=== PATIENT | male | born 1935 | race Caucasian/White ===

== ENCOUNTER → 2017-11-29 11:31 | Outpatient (CLI) | payer MEDICARE, OTHER, SELFPAY ==
[2017-11-29 18:59] LABS: Basophils # 0.1 K/mm3 (0-0.2); Basophils % 0.7 % (0.1-2.0); Eosinophils # 2.2 K/mm3 (0.0-0.4); Eosinophils % 26.1 % (0.1-12.0); Hematocrit 44.5 % (42.0-52.0); Hemoglobin 13.9 g/dL (14.1-18.0); Lymphocytes % 23.7 K/mm3 (10-50); Mean Corpuscular HGB Conc 31.1 g/dL (31.8-35.4); Mean Corpuscular Hemoglobin 32.9 pg (27.0-31.2); Mean Corpuscular Volume 105.7 fl (80-94); Mean Platelet Volume 9.3 fl (7.4-10.4); Monocytes # 0.6 K/mm3 (0.1-1.0); Monocytes % 7.1 % (1.7-9.3); Neutrophils # 3.5 K/mm3 (1.8-7.8); Neutrophils % 42.4 % (37.0-80.0); Platelet Count 223 K/mm3 (142-424); Red Blood Count 4.21 M/mm3 (4.60-6.20); Red Cell Distribution Width 16.8 % (11.5-17.5); White Blood Count 8.3 K/mm3 (4.8-10.8)
[2017-11-29 21:40] LABS: Alanine Aminotransferase 23 U/L (12-78); Albumin Level 3.5 gm/dL (3.4-5.0); Albumin/Globulin Ratio 0.9 (1.1-1.8); Alkaline Phosphatase 166 U/L (46-116); Anion Gap 15.6 mEq/L (5-15); Aspartate Amino Transferase 19 U/L (15-37); Bilirubin,Total 0.3 mg/dL (0.2-1.0); Blood Urea Nitrogen 28 mg/dL (7-18); Calcium 8.8 mg/dL (8.5-10.1); Carbon Dioxide 27 mmol/L (21.0-32.0); Chloride 102 mmol/L (98-107); Chol/HDL Ratio 4.2 (1-3.5); Cholesterol 140 mg/dL (140-200); Creatinine,Serum 1.65 mg/dL (0.70-1.30); Estimated Glomerular Filt Rate 40 ml/min (>60); GFR (African American) 49 ML/MIN (>60); Globulin 4.1 gm/dl (1.3-3.2); Glucose 139 mg/dL (74-106); HDL Cholesterol 33 mg/dL (27-67); LDL Cholesterol 28 mg/dL (0-130); Potassium 3.6 mmoL/L (3.5-5.1); Sodium 141 mmol/L (136-145); T4 (Thyroxine) 6.6 ug/dl (4.7-13.3); Thyroid Stimulating Hormone 8.86 uIU/ml (0.358-3.740); Total Protein,Serum 7.6 gm/dL (6.4-8.2); Triglycerides 393 mg/dL (30-200); VLDL Cholesterol 79 mg/dL (0-40)
[2017-12-01 19:02] LABS: Vitamin D 25 Hydroxy 22.2 ng/mL (30.0-100.0)
== END ==
PROVIDERS: Visit Provider Nurse Practitioner Family
DX: I10 Essential (primary) hypertension (principal); R53.83 Other fatigue; E03.9 Hypothyroidism, unspecified
CPT/HCPCS: 80053; 80061; 82652; 84436; 84443; 85025

== ENCOUNTER → 2017-12-20 14:43 | Outpatient (CLI) | payer MEDICARE, OTHER, SELFPAY ==
--- NOTE | 2017-12-20 14:46 | XR_ITS ---
XR chest 2V HISTORY: Cough, history of smoking ITS.REASON: smoker ORDERING PHYSICIAN: Lola Neri PATIENT AGE: 82 years COMPARISON: 08/09/2014 FINDINGS: The heart size is unremarkable. There is tortuosity/ectasia of the thoracic aorta. Hiatal hernia is present. The lungs are clear bilaterally. No acute bony anomalies are evident. There is a an oval calcific density in the right upper quadrant measuring 4.8 x 3.6 cm with faint shell-like calcification. 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 There is a 9 mm calcific density in the left upper quadrant. IMPRESSION: 1. Small to medium sized hiatal hernia 2. 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 3. Left upper quadrant calcification nonspecific and may be in the spleen or in the kidney. Consider abdomen CT for more thorough evaluation of the upper abdominal calcifications.
== END ==
PROVIDERS: PCP Nurse Practitioner Family; Visit Provider Nurse Practitioner Family
DX: R74.8 Abnormal levels of other serum enzymes (principal)
CPT/HCPCS: 71046

== ENCOUNTER → 2018-05-30 19:01 | Outpatient (CLI) | payer MEDICARE, OTHER, SELFPAY ==
[2018-05-30 19:31] LABS: Basophils # 0.1 K/mm3 (0-0.2); Hematocrit 45.6 % (42.0-52.0); Hemoglobin 14.5 g/dL (14.1-18.0); Lymphocytes # 1.6 K/mm3 (0.7-4.5); Mean Corpuscular HGB Conc 31.7 g/dL (31.8-35.4); Mean Corpuscular Hemoglobin 33.9 pg (27.0-31.2); Mean Platelet Volume 9.1 fl (7.4-10.4); Monocytes # 0.5 K/mm3 (0.1-1.0); Monocytes % 6.5 % (1.7-9.3); Neutrophils # 2.9 K/mm3 (1.8-7.8); Neutrophils % 40.5 % (37.0-80.0); Platelet Count 194 K/mm3 (142-424); Red Blood Count 4.26 M/mm3 (4.60-6.20); Red Cell Distribution Width 15.9 % (11.5-17.5)
[2018-05-30 20:49] LABS: Alanine Aminotransferase 21 U/L (12-78); Albumin Level 3.5 gm/dL (3.4-5.0); Albumin/Globulin Ratio 0.8 (1.1-1.8); Alkaline Phosphatase 151 U/L (46-116); Anion Gap 14.8 mEq/L (5-15); Aspartate Amino Transferase 15 U/L (15-37); Bilirubin,Total 0.3 mg/dL (0.2-1.0); Blood Urea Nitrogen 22 mg/dL (7-18); Calcium 9.3 mg/dL (8.5-10.1); Carbon Dioxide 26 mmol/L (21.0-32.0); Chloride 100 mmol/L (98-107); Chol/HDL Ratio 7.5 (1-3.5); Cholesterol 203 mg/dL (140-200); Creatinine,Serum 1.63 mg/dL (0.70-1.30); Estimated Glomerular Filt Rate 41 ml/min (>60); GFR (African American) 50 ML/MIN (>60); Globulin 4.6 gm/dl (1.3-3.2); Glucose 189 mg/dL (74-106); HDL Cholesterol 27 mg/dL (27-67); Potassium 4.8 mmoL/L (3.5-5.1); Sodium 136 mmol/L (136-145); T4 (Thyroxine) 4.9 ug/dl (4.7-13.3); Thyroid Stimulating Hormone 13.86 uIU/ml (0.358-3.740); Total Protein,Serum 8.1 gm/dL (6.4-8.2)
[2018-05-30 21:16] LABS: Triglycerides 621 mg/dL (30-200)
[2018-06-02 10:14] LABS: Vitamin D 25 Hydroxy 15.5 ng/mL (30.0-100.0)
== END ==
PROVIDERS: Visit Provider Nurse Practitioner Family
DX: E55.9 Vitamin D deficiency, unspecified (principal); E78.00 Pure hypercholesterolemia, unspecified; I10 Essential (primary) hypertension; F17.210 Nicotine dependence, cigarettes, uncomplicated
CPT/HCPCS: 80053; 80061; 82652; 84436; 84443; 85025

== ENCOUNTER → 2018-06-13 18:16 | Outpatient (CLI) | payer MEDICARE, OTHER, SELFPAY ==
[2018-06-13 19:56] LABS: Hemoglobin A1C 7.5 % (0.0-7.0)
== END ==
PROVIDERS: Visit Provider Emergency Medicine
DX: R53.83 Other fatigue (principal); Z79.899 Other long term (current) drug therapy
CPT/HCPCS: 83036

== ENCOUNTER → 2019-01-15 16:50 | Outpatient (CLI) | payer MEDICARE, OTHER, SELFPAY | PROVIDERS: Visit Provider Nurse Practitioner Family | DX: M54.9 Dorsalgia, unspecified (principal) | CPT/HCPCS: 87086 ==

== ENCOUNTER 2019-10-04 17:48 | Emergency (ER) | payer MEDICARE, OTHER, SELFPAY ==
[2019-10-04 17:49] VITALS: BP 94/58; PULSE 64; RESP 16; TEMP 36.8; O2SAT 97; BMI 18.0
--- NOTE | 2019-10-04 17:59 | XR_ITS ---
PROCEDURE: XR CHEST AP CLINICAL HISTORY: fall Posttraumatic pain COMPARISON: CXR2 CHEST-AP VIEW ONLY from 04/11/2014 CXR1 CHEST-PORTABLE from 08/09/2014 CXR2V XR chest 2V from 12/20/2017 FINDINGS: Mild cardiomegaly without failure. Lucency noted in the retrocardiac region consistent with hiatal hernia Increased density right lung base probably related some eventration of the diaphragm with some mild atelectatic change. Mild atelectasis left lung base. No acute bony abnormalities. IMPRESSION: Cardiomegaly with bibasilar atelectasis and hiatal hernia Dictated by: Jose Newton MD 10/05/2019 07:12 Electronically signed by Jose Newton MD in [place] 10/05/2019 07:12
--- NOTE | 2019-10-04 17:59 | CT_ITS ---
PROCEDURE: CT HEAD/BRAIN WO CON CLINICAL INDICATION: Fall Head injury with headache/pain, contusion, abrasion or hematoma COMPARISON: [facility] CT HEAD W/O CONTR from 11/30/2015 TECHNIQUE: Axial images obtained. All CT scans at the facility use one or more dose reduction, viz: automated exposure control, ma/kV adjustment per patient size (including targeted exams where dose is matched to indication, i.e. head), or iterative reconstruction technique. FINDINGS: No midline shift, mass effect, intracranial hemorrhage, hydrocephalus, or extra-axial fluid collection is evident. There is generalized atrophy with hypoattenuation of the periventricular white matter consistent with microangiopathic changes.. Encephalomalacia changes are present in the left occipital lobe the. There is prominent soft tissue swelling in the right frontal region of the scalp consistent with hematoma. The calvarium has an unremarkable appearance. There is a small amount fluid in left mastoid sinus. No sinus air-fluid level. IMPRESSION: 1. No acute intracranial findings. 2. Right frontal scalp hematoma Dictated by: Jose Newton MD 10/05/2019 07:37 Electronically signed by Jose Newton MD in [place] 10/05/2019 07:37
--- NOTE | 2019-10-04 17:59 | XR_ITS ---
PROCEDURE: XR PELVIS 1-2V CLINICAL INDICATION: fall Posttraumatic pain COMPARISON: XR HIP RT 2-3V W/PELVIS from 01/08/2019 TECHNIQUE: XR Pelvis AP View FINDINGS: No fracture or dislocation is evident. No significant degenerative change. There is generalized vascular calcification. There is suspected abdominal aortic/iliac artery aneurysm with curvilinear calcification noted of the aorta and proximal left common iliac. CT may confirm. Degenerative changes are present in the lower lumbar spine IMPRESSION: No acute finding. The atherosclerotic calcification with possible aortoiliac aneurysm. CT may confirm Dictated by: Jose Newton MD 10/05/2019 07:10 Electronically signed by Jose Nweton MD in [place] 10/05/2019 07:10
--- NOTE | 2019-10-04 17:59 | CT_ITS ---
PROCEDURE: CT CERVICAL SPINE WO CON CLINICAL INDICATION: Fall Neck injury with pain, contusion/abrasion or hematoma, cervical sprain/strain the COMPARISON: No exams were available for comparison TECHNIQUE: Axial images obtained with sagittal and coronal reformats. All CT scans at the facility use one or more dose reduction, viz: automated exposure control, ma/kV adjustment per patient size (including targeted exams where dose is matched to indication, i.e. head), or iterative reconstruction technique. Axial spiral CT scanning performed of the cervical spine beginning at the base of the skull and continuing to the upper T-spine. 3-D multiplanar reconstruction with 3-D manipulation of volumetric data set in image rendering was completed by the radiologist and/or technologist with the supervision of the radiologist on independent workstation. FINDINGS: There is normal alignment. No fracture or dislocation is evident. Multilevel cervical spondylosis is present including degenerative disc disease C2-C3, degenerative disc disease with endplate osteophytes and bilateral foraminal narrowing at C3-C4, degenerative disc disease C4-C5 with mild bilateral foraminal narrowing, degenerative disc disease C5-C6 with endplate osteophyte eccentric to the right with right lateral recess and foraminal narrowing, degenerative disc disease C6-C7 with mild bilateral foraminal narrowing. Irregular opacities are present in both lung apices possibly due to scarring/fibrotic change. Consider chest CT for further evaluation. This optic is is dilated with mild thickening of the esophageal wall. Diffuse atherosclerotic calcification involves the aorta and great vessels with fusiform dilatation of the carotid arteries. Scattered gas density is present on both sides of the cavernous sinus. IMPRESSION: 1. No acute fracture 2. Multilevel cervical spondylosis as detailed above. 3. Opacities in both lung apices which could be due to scarring. Follow-up suggested as neoplasm is not excluded. 4. Gas density within the cavernous sinus. This may be seen with sphenoid fractures, thromboembolic disease, or air emboli from intravenous access. Consider follow-up head CT to confirm resolution. Dictated by: Jose Newton MD 10/05/2019 07:54 Electronically signed by Jose Newton MD in [place] 10/05/2019 07:54
--- NOTE | 2019-10-04 18:01 | ECG_ITS ---
APPROVED REPORT Exam: Resting ECG HR:69 bpm ECG Measurements Heart Rate 69 AXES IA 130 P 74 QRSd 104 QRS 3 QT 456 T 75 QTc 488 <Conclusion> Normal sinus rhythm T wave abnormality, consider anterolateral ischemia Prolonged QT Abnormal ECG Electronically signed by : Dayo Mills, 10/05/2019 09:04:38
--- NOTE | 2019-10-04 18:44 | HMH.EDWEAK ---
ED Disposition Clinical Impression: Accidental fall, Closed head injury Disposition: Home, Self-Care Condition on Discharge: Good Instructions: DI for Concussion Referrals: Lola Neri APRN [Primary Care Provider] - 3 days Time of Disposition: 19:45 - Critical Care Critical Care Time: No Attestation: On 10/04/19, the high probability of a clinically significant, sudden or life threatening deterioration of the following system(s) required my full and direct attention, intervention and personal management. The time I documented below is in addition to time spent performing reported procedures but includes the following listed in this critical care notation. Medical Decision Making - Medical Records Medical records reviewed: Yes: I reviewed the patient's medical records. - Sarwat Inquiry Pt receiving controlled substance: No Vital Signs: 10/04/19 17:49 Temperature 98.2 F Temperature Source Oral Pulse Rate [Right Brachial] 64 Respiratory Rate 16 Blood Pressure [Right Arm] 94/58 L Blood Pressure Mean [Right Arm] 70 Blood Pressure Source [Right Arm] Automatic Cuff Blood Pressure Position [Right Arm] Sitting 02 Sat by Pulse Oximetry 97 Oxygen Delivery Method Nasal Cannula Oxygen Flow Rate (LPM) 2 - Lab Data Lab Results 10/04/19 19:06: WBC 9.6, RBC 3.34 L, Hgb 11.0 L, Hct 34.8 L, MCV 104.1 H, MCH 32.9 H, MCHC 31.6 L, RDW 16.7, Plt Count 168, MPV 9.2, Neut % (Auto) 73.0, Lymph % (Auto) 14.1, [place] % (Auto) 4.1, Eos % (Auto) 8.4, Baso % (Auto) 0.4, Neut # (Auto) 7.0, Lymph # (Auto) 1.4, Howard # (Auto) 0.4, Eos # (Auto) 0.8 H, Baso # (Auto) 0.0 10/04/19 19:06: Sodium 137, Potassium 4.5, Chloride 104, Carbon Dioxide 28, Anion Gap 9.5, BUN 26 H, Creatinine 1.40 H, Estimated Creat Clear 28, Estimated GFR 49 L, Est GFR ( Amer) 59, Glucose 134 H, Calcium 8.7, Total Bilirubin 0.5, AST 26, ALT 20, Alkaline Phosphatase 134 H, Troponin I 0.01, Total Protein 6.2 L, Albumin 3.3 L, Globulin 2.9, Albumin/Globulin Ratio 1.1 Result diagrams: 10/04/19 19:06 10/04/19 19:06 Orders (Tests/Meds): ORDERS Category Date Time Status CT cervical spine wo con Stat Cat Scan 10/04/19 17:[address] head/brain wo con Stat Cat Scan 10/04/19 17:59 Taken Chest XR AP view [XR chest AP] Stat Exams 10/04/19 17:59 Taken XR pelvis 1-2V Stat Exams 10/04/19 17:59 Taken Troponin I Q3H Lab 10/04/19 21:15 Ordered Troponin I Q3H Lab 10/05/19 00:15 Ordered - Radiology Data #1 X-ray of the chest and pelvis did not show any acute fracture or abnormality - CT Data CT Scan: Head, C-Spine Time Received: 18:49 Findings Narrative: Large right frontal hematoma, no acute intracranial abnormality, no C-spine fracture - ECG Data Tracing #1 EKG was reviewed at 04/03/2002. Normal ventricular rate of 69 bpm, normal PA interval. Sinus rhythm with nonspecific changes, prolonged QT - Reevaluation(s) Time: 19:44 Reevaluation #1: On reevaluation, the patient is feeling much better. Repeat exam is normal. Neuro exam is normal. Patient does not show any fracture on his imaging. He has some mild acute kidney injury. The daughter states that he has been sitting out in the sun in the heat lately because he is always cold. I did instruct them to maintain fluid intake. Given strict return precautions. Verbalized understanding. Medical Decision Narrative: 83-year-old male presented to the emergency department after accidental fall. Patient has large hematoma. CT will be obtained. Hemodynamically stable at this time. Weakness HPI - General Chief complaint: Weakness Stated complaint: fall Time Seen by Provider: 10/04/19 17:51 Mode of Arrival: EMS Limitations: No Limitations Description of Symptoms (Recalled from ER Triage Doc. by RN): PT comes in with large hematoma to the right side of his head. Family reports pt has been falling today and unsure of why. Pt c/o neck pain, and a headache and advises he just [place]
[2019-10-04 19:16] LABS: Basophils % 0.4 % (0.1-2.0); Chloride 104 mmol/L (98-107); Eosinophils # 0.8 K/mm3 (0.0-0.4); Eosinophils % 8.4 % (0.1-12.0); Hematocrit 34.8 % (42.0-52.0); Lymphocytes # 1.4 K/mm3 (0.7-4.5); Lymphocytes % 14.1 % (10-50); Mean Corpuscular HGB Conc 31.6 g/dL (31.8-35.4); Mean Corpuscular Hemoglobin 32.9 pg (27.0-31.2); Mean Corpuscular Volume 104.1 fl (80-94); Mean Platelet Volume 9.2 fl (7.4-10.4); Monocytes # 0.4 K/mm3 (0.1-1.0); Monocytes % 4.1 % (1.7-9.3); Platelet Count 168 K/mm3 (142-424); Red Blood Count 3.34 M/mm3 (4.60-6.20); Red Cell Distribution Width 16.7 % (11.5-17.5); Sodium 137 mmol/L (136-145); White Blood Count 9.6 K/mm3 (4.8-10.8)
[2019-10-04 19:17] LABS: Potassium 4.5 mmoL/L (3.5-5.1)
[2019-10-04 19:19] LABS: Alanine Aminotransferase 20 U/L (12-78); Alkaline Phosphatase 134 U/L (38-126); Aspartate Amino Transferase 26 U/L (17-59); Bilirubin,Total 0.5 mg/dl (0.2-1.3); Blood Urea Nitrogen 26 mg/dl (9-20); Creatinine Clearance Estimated 28 mL/min (50-200); Estimated Glomerular Filt Rate 49 ml/min (>60); GFR (African American) 59 ML/MIN (>60)
[2019-10-04 19:20] LABS: Albumin Level 3.3 g/dl (3.5-5.0); Albumin/Globulin Ratio 1.1 (1.1-1.8); Anion Gap 9.5 mEq/L (5-15); Calcium 8.7 mg/dl (8.4-10.2); Carbon Dioxide 28 mmol/L (22.0-30.0); Globulin 2.9 g/dL (1.3-3.2); Glucose 134 mg/dl (74-100); Total Protein,Serum 6.2 g/dl (6.3-8.2)
[2019-10-04 19:35] LABS: Troponin I 0.01 ng/ml (0.00-0.034)
[2019-10-04 19:57] VITALS: BP 113/72; PULSE 78; RESP 18; O2SAT 94
[2019-10-04 20:07] VITALS: BP 113/72; PULSE 78; RESP 18; TEMP 36.7; O2SAT 94
== END 2019-10-04 20:08 | disposition home or self-care (01) ==
PROVIDERS: Emergency Provider Emergency Medicine; PCP Nurse Practitioner Family
DX: S00.83XA Contusion of other part of head, initial encounter (principal); W01.0XXA Fall on same level from slipping, tripping and stumbling without subsequent striking against object, initial encounter; Y92.019 Unspecified place in single-family (private) house as the place of occurrence of the external cause; J44.9 Chronic obstructive pulmonary disease, unspecified; I10 Essential (primary) hypertension; I25.2 Old myocardial infarction; E78.5 Hyperlipidemia, unspecified; F17.210 Nicotine dependence, cigarettes, uncomplicated; Z79.899 Other long term (current) drug therapy
CPT/HCPCS: 70450; 71045; 72125; 72170; 80053; 84484; 85025; 93005; 99283

== ENCOUNTER 2020-01-14 11:35 | Inpatient (IN) | payer MEDICARE, OTHER, SELFPAY ==
[2020-01-14] VITALS (15 sets, daily range): BP systolic 112–144; BP diastolic 56–93; PULSE 75–106; RESP 17–22; TEMP 36.4–36.6; O2SAT 90–97; BMI 23.9; BMI 22.4; BMI 23.2
--- NOTE | 2020-01-14 11:42 | ECG_ITS ---
APPROVED REPORT Exam: Resting ECG HR:84 bpm ECG Measurements Heart Rate 84 AXES IN 116 P 23 QRSd 100 QRS 0 QT 402 T 159 QTc 475 Conclusion Normal sinus rhythm ST & T wave abnormality, consider lateral ischemia Prolonged QT Abnormal ECG Electronically signed by : Dayo Mills, 01/27/2020 16:38:44
--- NOTE | 2020-01-14 11:43 | XR_ITS ---
PROCEDURE: XR CHEST PORTABLE CLINICAL HISTORY: SOB And chest pain, denies smoking history COMPARISON: Portable upright chest 10/04/2019 and PA and lateral chest 12/20/2017 FINDINGS: This is a poor inspiratory effort. Coarse patchy ill-defined pneumonic infiltrates are seen in both perihilar regions and both lower lobes slightly more prominent right side than left. There is a small right pleural effusion and there may be minimal blunting and/or effusion at the left costophrenic angle. The upper lung vicente are clear. There is stable mild generalized cardiomegaly with aortic tortuosity there is no pulmonary congestion. IMPRESSION: Bilateral perihilar and lower lobe pneumonia with reactive pleural effusions larger right side than left Dictated by: Dr. Clint Valles MD 01/14/2020 12:24 Dr. Clint Valles MD in [place] 01/14/2020 12:24
--- NOTE | 2020-01-14 11:43 | PC.NURSE ---
Family at bedside
--- NOTE | 2020-01-14 11:48 | HMH.EDGENADL ---
ED Disposition Clinical Impression: Acute urinary retention, Elevated troponin Congestive heart failure Qualifiers: Heart failure type: unspecified Heart failure chronicity: acute Qualified Code(s): I50.9 - Heart failure, unspecified Respiratory failure with hypoxia Qualifiers: Chronicity: acute Qualified Code(s): J96.01 - Acute respiratory failure with hypoxia Disposition: Admitted As Inpatient Condition on Discharge: Serious - Critical Care Critical Care Time: Yes Attestation: On , the high probability of a clinically significant, sudden or life threatening deterioration of the following system(s) required my full and direct attention, intervention and personal management. The time I documented below is in addition to time spent performing reported procedures but includes the following listed in this critical care notation. Total Critical Care Time: 30 Vital system(s) involved:: Circulatory Failure, Respiratory Failure My critical care processes included: Assessment & monitoring of V/S, Initial and Re-exams, Data Review/Interpretation, Coordinating Care, Medication Orders and management, Documentation Medical Decision Making - Medical Records Medical records reviewed: Yes: I reviewed the patient's medical records. - Sarwat Inquiry Pt receiving controlled substance: No Vital Signs: 01/14/20 11:38 01/14/20 12:06 01/14/20 12:25 Temperature 97.9 F Temperature Source Oral Pulse Rate [Right Radial] 84 87 Respiratory Rate 20 Blood Pressure [Right Arm] 144/93 H 115/71 Blood Pressure Mean [Right Arm] 110 85 Blood Pressure Source [Right Arm] Automatic Cuff Automatic Cuff Blood Pressure Position [Right Arm] Sitting Sitting 02 Sat by Pulse Oximetry 95 94 L 96 Oxygen Delivery Method Room Air Nasal Cannula Nasal Cannula Oxygen Flow Rate (LPM) 3 2 01/14/20 12:38 01/14/20 13:00 01/14/20 13:26 Temperature 97.7 F Temperature Source Oral Pulse Rate [Right Radial] 76 100 H 83 Respiratory Rate 20 22 21 Blood Pressure [Right Arm] 127/80 118/75 136/83 Blood Pressure Mean [Right Arm] 95 89 100 Blood Pressure Source [Right Arm] Automatic Cuff Automatic Cuff Automatic Cuff Blood Pressure Position [Right Arm] Sitting Sitting Sitting 02 Sat by Pulse Oximetry 96 96 94 L Oxygen Delivery Method Nasal Cannula Nasal Cannula Nasal Cannula Oxygen Flow Rate (LPM) 2 3 3 01/14/20 14:52 01/14/20 15:30 Temperature Temperature Source Pulse Rate [Right Radial] 75 78 Respiratory Rate Blood Pressure [Right Arm] 118/80 Blood Pressure Mean [Right Arm] 92 Blood Pressure Source [Right Arm] Automatic Cuff Blood Pressure Position [Right Arm] Sitting 02 Sat by Pulse Oximetry 96 94 L Oxygen Delivery Method Nasal Cannula Nasal Cannula Oxygen Flow Rate (LPM) 3 3 - Lab Data Lab results reviewed: Yes: I reviewed the patient's lab results. Lab Results 01/14/20 12:12: WBC 8.0, RBC 3.12 L, Hgb 9.6 L, Hct 30.6 L, MCV 98.2 H, MCH 30.8, MCHC 31.4 L, RDW 18.3 H, Plt Count 255, MPV 9.6, Neut % (Auto) 83.1 H, Lymph % (Auto) 9.4 L, [place] % (Auto) 4.1, Eos % (Auto) 3.2, Baso % (Auto) 0.2, Neut # (Auto) 6.6, Lymph # (Auto) 0.7, [place] # (Auto) 0.3, Eos # (Auto) 0.3, Baso # (Auto) 0.0 01/14/20 12:12: Sodium 138, Potassium 4.1, Chloride 101, Carbon Dioxide 24, Anion Gap 17.1 H, BUN 44 H, Creatinine 1.70 H, Estimated Creat Clear 29, Estimated GFR 39 L, Est GFR ( Amer) 47 L, Glucose 177 H, Calcium 8.6, Troponin I 1.37 H 01/14/20 12:12: NT-Pro-B Natriuret Pep 27662 H 01/14/20 12:12: SARS-CoV-2 IgG Ab (Rapid) Negative, SARS-CoV-2 IgM Ab (Rapid) Negative 01/14/20 12:12: Total Bilirubin 0.7, Direct Bilirubin 0.4, Conjugated Bilirubin 0.0, Indirect Bilirubin 0.3, Unconjugated Bilirubin 0.3, AST 43, ALT 30, Alkaline Phosphatase 125, Total Protein 6.8, Albumin 3.8 01/14/20 12:12: Lactate 2.8 H 01/14/20 12:12: TSH < 0.02 L 01/14/20 13:02: Chlamy pneumoniae PCR Not detected, Adenovirus (PCR) Not detected, B. pertussis DNA (PCR) Not detected, Cor
--- NOTE | 2020-01-14 12:11 | PC.NURSE ---
rad at BS
[2020-01-14 12:24] LABS: Basophils % 0.2 % (0.1-2.0); Eosinophils # 0.3 K/mm3 (0.0-0.4); Eosinophils % 3.2 % (0.1-12.0); Hematocrit 30.6 % (42.0-52.0); Hemoglobin 9.6 g/dL (14.1-18.0); Lymphocytes # 0.7 K/mm3 (0.7-4.5); Lymphocytes % 9.4 % (10-50); Mean Corpuscular HGB Conc 31.4 g/dL (31.8-35.4); Mean Corpuscular Hemoglobin 30.8 pg (27.0-31.2); Mean Corpuscular Volume 98.2 fl (80-94); Mean Platelet Volume 9.6 fl (7.4-10.4); Monocytes # 0.3 K/mm3 (0.1-1.0); Monocytes % 4.1 % (1.7-9.3); Neutrophils # 6.6 K/mm3 (1.8-7.8); Neutrophils % 83.1 % (37.0-80.0); Platelet Count 255 K/mm3 (142-424); Red Blood Count 3.12 M/mm3 (4.60-6.20); Red Cell Distribution Width 18.3 % (11.5-17.5)
[2020-01-14 12:29] LABS: Chloride 101 mmol/L (98-107); Potassium 4.1 mmoL/L (3.5-5.1); Sodium 138 mmol/L (136-145)
[2020-01-14 12:32] LABS: Alanine Aminotransferase 30 U/L (12-78); Alkaline Phosphatase 125 U/L (38-126); Anion Gap 17.1 mEq/L (5-15); Aspartate Amino Transferase 43 U/L (17-59); Bilirubin,Direct 0.4 mg/dl (0.0-0.4); Bilirubin,Indirect 0.3 mg/dL (0.0-0.9); Bilirubin,Total 0.7 mg/dl (0.2-1.3); Bilirubin,Unconjugated 0.3 mg/dL (0.0-1.1); Blood Urea Nitrogen 44 mg/dl (9-20); Calcium 8.6 mg/dl (8.4-10.2); Carbon Dioxide 24 mmol/L (22.0-30.0); Creatinine Clearance Estimated 29 mL/min (50-200); Estimated Glomerular Filt Rate 39 ml/min (>60); GFR (African American) 47 ML/MIN (>60); Glucose 177 mg/dl (74-100)
[2020-01-14 12:33] LABS: Albumin Level 3.8 g/dl (3.5-5.0); Total Protein,Serum 6.8 g/dl (6.3-8.2)
[2020-01-14 12:41] LABS: NT Pro Brain Natriuretic Pep. 18700 pg/mL (0-450)
[2020-01-14 12:42] LABS: Lactic Acid 2.8 mmol/L (0.7-2.1)
[2020-01-14 12:48] LABS: Troponin I 1.37 ng/ml (0.00-0.034)
--- NOTE | 2020-01-14 12:48 | PC.NURSE ---
ER notified of pt critical troponin
[2020-01-14 12:49] LABS: Coronavirus 19 IgG Antibody Negative (Negative); Coronavirus 19 IgM Antibody Negative (Negative)
--- NOTE | 2020-01-14 12:49 | CA_ITS ---
APPROVED REPORT EXAM: Comprehensive 2D, Doppler, and color-flow Echocardiogram Squirrel Worker: Maria Del Carmen Sosa RT(R) Ht: 5 ft 5 in Wt: 135lbs BSA: 1.67 BP: 118/75 mmHg Indications: COPD, smoker, palpitations, edema, HTN, SOB, HANDLEY, hyperlipidemia, dizzines 2D Dimensions LVOT 2.01 cm (M/F) 1.5-2.5 LVEF (Solano's) 28.80 % M: 52 - 72 LV Volume 123.20 mL M: 62 - 150 LV Volume Index 73.77 mL/m2 M: 34 - 74 M-Mode Dimensions RVDd 1.82 cm (0.9-2.6) LA Diam 3.97 cm (1.9-4.0) LVDd 3.21 cm (3.5-5.7) Ao Diam 1.95 cm (2.0-3.7) LVDs 2.61 cm (3.5-5.7) IVSd 1.32 cm (0.6-1.1) PWd 0.89 cm (0.6-1.1) EF (Teich) 40.00% FS 18.70% EDV (Teich) 41.30 mL ESV (Teich) 24.80 mL LV Diastology E Decel Time 147.00 (160-240 msec) E/A Ratio 1.1 MED E' 6.20 (< 7 cm/sec) E'/MED E' Ratio 13.85 (>14) Aortic Valve LVOT Max 75.00 (70-110 cm/s) LVOT VTI 15.13 cm AoV Peak Juan. 160.00 (50-130 cm/s) AI PHT 468.00 ms AO Peak GR. 10.30 mmHg AO Mean GR. 4.70 (<5 mmHg) AO VTI 27.83 (18-25 cm) SATYA (VTI) 1.73 (2.5-4.5 cm2) Mitral Valve MV E Max Juan. 86.00 (40-130 cm/s) MV A Velocity 81.00 (40-130 cm/s) E/A Ratio 1.06 MV Decel. Time 147.00 (160-240 ms) MV PHT 43.00 ms Tricuspid Valve TR P. Velocity 230.00 cm/s RAP Estimate 15.00 mmHg RVSP 36.20 mmHg Left Ventricle Left atrium is mildly enlarged, left ventricle is mildly dilated, there is severely soft ventricular systolic function, visually estimated ejection fraction approximately 25%, there is marked hypokinesis involving mid to distal septum, anterior, anterior apical and anterolateral wall, possibility of left ventricular apical thrombus cannot be excluded, repeat study with Definity contrast is recommended. Diastolic parameters are inconclusive. Right Ventricle Right atrium and right ventricle are normal size and contractility. Aortic Valve Aortic valve is thickened and calcified with restriction in the leaflet mobility, aortic outflow velocity is not particularly increased, there is moderate aortic insufficiency, morphologically there is at least moderate aortic stenosis. Mitral Valve Mitral valve has mitral annular calcification which extends both anterior posterior mitral leaflet, there is no mitral stenosis, there is mild mitral regurgitation. Tricuspid Valve Tricuspid valve is grossly normal, there is mild tricuspid regurgitation, calculated right ventricular systolic pressure 36 mmHg. Pulmonic Valve Pulmonic valve is poorly visualized. Great Vessels Aortic root is normal size. Pericardium No significant pericardial effusion noted. Conclusion 1. Enlarged left atrium, dilated left ventricle, severe reduced left ventricular systolic function, visually estimated ejection fraction 20 to 25% with multiple segmental wall motion abnormality as described above, diastolic parameters are inconclusive. Possibility of apical mural thrombus cannot be excluded, repeat study definitely contrast is recommended. 2. Thickened and calcified aortic valve morphologically there is at least moderate aortic stenosis, however aortic outflow velocities not increased. There is moderate aortic insufficiency. 3. Mild mitral and tricuspid regurgitation, calculated right ventricular systolic pressure is 36 mmHg. 4. No significant pericardial effusion noted. Electronically signed by : Shane Herrera, 01/14/2020 17:51:06
--- NOTE | 2020-01-14 12:49 | PC.NURSE ---
contacted [facility] to notify them in echo
--- NOTE | 2020-01-14 13:02 | PC.NURSE ---
covid swab sent to lab at this time
[2020-01-14 13:06] LABS: Adenovirus,PCR Not Detected (NotDetected); Bordetella Pertussis Not Detected (NotDetected); Chlamydophila Pneumoniae, PCR Not Detected (NotDetected); Coronavirus 19, PCR Not Detected (NotDetected); Coronavirus 229E Not Detected (NotDetected); Coronavirus NL63 Not Detected (NotDetected); Coronavirus OC43 Not Detected (NotDetected); Coronovirus HKU1,PCR Not Detected (NotDetected); Human Metapneumovirus Not Detected (NotDetected); Influenza A, PCR Not Detected (NotDetected); Influenza AH1, 2009 Not Detected (NotDetected); Influenza AH1, PCR Not Detected (NotDetected); Influenza AH3,PCR Not Detected (NotDetected); Influenza B, PCR Not Detected (NotDetected); Mycoplasma Pneumoniae, PCR Not Detected (NotDetected); Parainfluenza 1, PCR Not Detected (NotDetected); Parainfluenza 2, PCR Not Detected (NotDetected); Parainfluenza 3, PCR Not Detected (NotDetected); Parainfluenza 4, PCR Not Detected (NotDetected); Respiratory Syncytial Virus Not Detected (NotDetected); Rhinovirus/Enterovirus Not Detected (NotDetected)
--- NOTE | 2020-01-14 13:08 | PC.NURSE ---
pt reports needing to urinate, pt unable to urinate laying down in bed. Pt stood at BS with staff assistance, pt able to dribble small amount of urine. Pt assisted back in bed, pt reports very SOA after getting back into bed, SaO2 95% on 2L NC
--- NOTE | 2020-01-14 13:09 | PC.NURSE ---
[facility] at bedside
--- NOTE | 2020-01-14 13:10 | PC.NURSE ---
[facility] staff at for echo
--- NOTE | 2020-01-14 13:36 | PC.NURSE ---
pt urinated 40 ml. States he has to pee so bad it hurts. aware.
--- NOTE | 2020-01-14 13:44 | PC.NURSE ---
[facility] finished at this time. Verbal report given to Nilay Arguelles RN [facility] technology teacher stated she would fill out the report and fax it down.
--- NOTE | 2020-01-14 13:48 | PC.NURSE ---
Calling Dr Martin at this time.
--- NOTE | 2020-01-14 13:50 | PC.NURSE ---
Dr Rodriguez speaking with Dr Martin at this time.
--- NOTE | 2020-01-14 13:54 | PC.NURSE ---
Dr Rodriguez speaking to David Shanks at this time.
--- NOTE | 2020-01-14 13:57 | PC.NURSE ---
KAMARI PONCE spoke with SRIRAM Serrano for cardiology to consult with him on pt.
[2020-01-14 13:58] LABS: Thyroid Stimulating Hormone < 0.02 uIU/mL (0.465-4.68)
--- NOTE | 2020-01-14 14:00 | PC.NURSE ---
notified norm in care management of admission
--- NOTE | 2020-01-14 14:08 | PC.NURSE ---
eduardo dickey at BS
--- NOTE | 2020-01-14 14:23 | HMH.CNCARD ---
History of Present Illness Consult date: 01/14/20 Requesting physician: Hayden Martin Consult reason: congestive heart failure, shortness of breath Chief complaint: SOA, LE edema Additional Medical History:: 1. Hypertension, treated for many years 2. Hyperlipidemia, treated for many years 3. Reported history of diabetes mellitus, treated transiently several years ago 4. Continued tobacco use in the form of cigarettes and chewing tobacco A. COPD 5. CAD A. History of non-ST elevation [place], 2013, transferred to [facility], reportedly no cardiac catheterization performed 6. Congestive heart failure, 01/14/2020 A. Elevated troponin B. Preliminary echocardiogram shows severe cardiomyopathy with ejection fraction approximate 25% 7. Hard of hearing 8. 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 Hypothyroidism, on replacement therapy 10. Mild anemia 11. CKD, stage III, creatinine 1.7 and GFR of 39, 01/14/2020 History of present illness: History predominantly obtained from his daughter, supplemented by the patient. Daughter states that he saw his primary care provider last week for pain in his hip and was given a couple of shots and was started on steroid pills. On Monday, 2 days ago she was called to his house because he was short of breath. She says that she gave him his inhaler and he improved. He now complains of smothering since 5 AM. Ambulance was called to his house today and she says they called her and told her it is his heart and advised that he see his primary care doctor. He went to his primary care provider today who sent him to the emergency department. She says they reported that he has had a 6 pound weight gain. His feet and legs are swollen today, which is not typical for him. He is on a water pill, daughter does not know why. He is a smoker, but is not on oxygen at home or nebulizer treatments. He just has an inhaler. He denies chest pain or cough. He denies leg pain. Daughter states he has a remote history of a small heart attack, no stents or bypass surgery. Medical record indicates a diagnosis of COPD as well. The above per Dr. Rodriguez Cardiology consulted for congestive heart failure and elevated troponin. History as noted above and mainly provided by the patient's daughter as patient is hard of hearing. Patient does have a history of myocardial infarction in 2013 at which time he was transferred to [facility] in [place], [place] for further evaluation and treatment. Daughter does not feel that the patient had a cardiac catheterization at that time or since then. She states he was seen by a stock house worker in [facility] for a couple of years and then released from their care. Patient does smoke 2-3 cartons of cigarettes per month and chews tobacco. He has been treated for hypertension and hyperlipidemia for many years. He reportedly was on diabetes medication but was taken off of this several years ago. Chest x-ray reported as pneumonia may actually be partly due to congestive heart failure as patient does have JVD and lower extremity 2-3+ pitting edema. EKG is sinus rhythm with T wave inversion anterolaterally with ST segment depression in the lateral leads. Reportedly this is similar to a prior tracing dating back to 2001. [facility] History Medical History: Reports:: Chronic Obstructive Pulmonary Disease (COPD), Hyperlipidemia, Hypertension, Myocardial Infarction Denies:: Diabetes Mellitus Type 1, Diabetes Mellitus Type 2 *Have you ever received a pneumonia vaccine?: No *Have you received a flu vaccine this season?: No Other Medical History: Reports: Thyroid Disease Other Surgeries: Yes: Appendectomy, Other. No: Cardiac Catheterization, Colonoscopy, EGD Amputation: No Fractures: No - *Social History Smoking Status: Current every day smoker Tobacco Type: cigarettes, smokeless tobacco # Packs/Day (cigarettes): 1 Alcohol Intake: never Substance Use Type: denies use *Occupatio
--- NOTE | 2020-01-14 14:23 | PC.NURSE ---
contacted lab to check status of covid swab, spoke with xavi who states approx 25 minutes until resulted
--- NOTE | 2020-01-14 15:24 | PC.NURSE ---
edgar catheter emptied at this time, 1000 mL of urine noted. Lasix administered per IV as ordered per MAR at this time
--- NOTE | 2020-01-14 15:46 | PC.NURSE ---
BS report given to TY Richardson at this time
[2020-01-14 15:48] LABS: Troponin I 1.47 ng/ml (0.00-0.034)
--- NOTE | 2020-01-14 15:48 | PC.NURSE ---
notified KAMARI PONCE troponin 1.47 called by lab at this time KAMARI PONCE instructed us to notify SRIRAM Serrano
--- NOTE | 2020-01-14 15:49 | PC.NURSE ---
Trop reported to SRIRAM Coronel.
--- NOTE | 2020-01-14 15:50 | PC.NURSE ---
Bedside report received from Nilay Arguelles RN in ER at 1541. Then pt transported to room 203 via stretcher by [facility] staff x2, tolerated transport well.
--- NOTE | 2020-01-14 15:50 | PC.NURSE ---
contacted second floor to notify primary receiving nurse of repeat troponin and that ER and SRIRAM Serrano have been notified and no new orders have been obtained at this time.
--- NOTE | 2020-01-14 15:51 | HMH.PHAVTE ---
[facility] Pharmacy VTE Monitoring - Patient Demographics Admission date: 01/14/20 Report Date: 01/14/20 Time: 15:51 Allergies/Adverse Reactions: Patient Allergies No Known Allergies Allergy (Verified 01/14/20 10:56) Height: 1.65 m Weight: 61.235 kg Patient Problems: Current Active Problems Congestive heart failure (Acute) Acute urinary retention (Acute) Respiratory failure with hypoxia (Acute) Elevated troponin (Acute) History of hypertension (Acute) History of diabetes mellitus (Acute) Hyperlipidemia (Chronic) Hypothyroidism (Chronic) - VTE Risk Labs: VTE Related Lab Results Hgb 9.6 g/dL (14.1-18.0) L 01/14/20 12:12 Hct 30.6 % (42.0-52.0) L 01/14/20 12:12 Plt Count 255 K/mm3 (142-424) 01/14/20 12:12 BUN 44 mg/dl (9-20) H 01/14/20 12:12 Creatinine 1.70 mg/dl (0.66-1.25) H 01/14/20 12:12 Estimated Creat Clear 29 mL/min (50-200) 01/14/20 12:12 - Prophylaxis VTE Prophylaxis Ordered?: Yes Types of VTE Prophylaxis: TEDS Knee High Location of Applied Device: Bilateral Lower Extremeties
--- NOTE | 2020-01-14 16:06 | HMH.PHAINT ---
clarified home medication list with [facility]
[2020-01-14 16:31] LABS: Reflex Lactic Add Lactic Reflex
--- NOTE | 2020-01-14 17:32 | PC.NURSE ---
Pt called out complaining of TY LOMBARDO at bedside. Respiratory notified of need for breathing treatment. 2 L O2 remains in place via nasal cannula.
--- NOTE | 2020-01-14 18:00 | PC.NURSE ---
Pt previously complaining of burning from urinary catheter and was medicated per EMAR with tylenol. Respiratory therapy was at bedside with pt for inhaler and pt c/o to personnel at that time about burning. RN in to see pt and address the situation, pt sleeping soundly with resps even and unlabored. Will continue to monitor.
[2020-01-14 18:16] LABS: Lactic Acid Follow Up (RFLX 1) 3.1 mmol/L (0.7-2.1)
[2020-01-14 18:33] LABS: Troponin I 1.41 ng/ml (0.00-0.034)
--- NOTE | 2020-01-14 19:12 | PC.NURSE ---
report given to katie
[2020-01-14 19:55] LABS: Reflex Lactic (2 hrs) Add Lactic Reflex
[2020-01-14 20:25] LABS: Lactic Acid Follow up (RFLX 2) 2.9 mmol/L (0.7-2.1)
[2020-01-15] VITALS (11 sets, daily range): BP systolic 79–128; BP diastolic 48–73; PULSE 70–94; RESP 16–18; TEMP 36.4–37; O2SAT 90–100; BMI 22.7; BMI 22.6
--- NOTE | 2020-01-15 03:20 | PC.NURSE ---
Pt has rested majority of this shift. Pt was transferred to recliner at the beginning of this shift bc pt was c/o smothering laying up in the bed. Once pt was transferred to recliner, pt had no more complaints. Pt is alert to self and he knows where he currently is, but is unable to state birthday and present D/M/Y. Pt has coarse crackles t/o all lung vicente per auscultation. Pt has a non-productive, hacking cough. Pt is tolerating 2 L NC with o2 sats between 90-97% this shift. Currently he is at 94%. Graves cath remains patent and is draining clear, yellow urine per gravity. Med Rec was completed this shift over the phone with pt's daughter Swetha Lal. No discrepancies noted. Call light remains in reach. No other acute changes or complaints at this time. Will continue to monitor.
[2020-01-15 07:59] LABS: Anion Gap 10.8 mEq/L (5-15); Blood Urea Nitrogen 46 mg/dl (9-20); Calcium 8.3 mg/dl (8.4-10.2); Carbon Dioxide 28 mmol/L (22.0-30.0); Chloride 101 mmol/L (98-107); Creatinine Clearance Estimated 30 mL/min (50-200); Estimated Glomerular Filt Rate 42 ml/min (>60); GFR (African American) 50 ML/MIN (>60); Glucose 153 mg/dl (74-100); Potassium 3.8 mmoL/L (3.5-5.1); Sodium 136 mmol/L (136-145)
--- NOTE | 2020-01-15 11:58 | HMH.PNCARD ---
<Inés Alan - Last Filed: 01/15/20 12:43> Subjective Date: 01/15/20 Time: 10:45 Principal diagnosis: systolic chf Interval history: This is an 84-year-old white gentleman who presented to the emergency department with shortness of breath and lower extremity edema. The patient was found to be in congestive heart failure and had an elevated troponin. He has diuresed overnight with Lasix. He states he feels much better today. He states he is still short of breath with exertion but this is under much better control. He states his edema has resolved. He denies any chest pain or pressure. He denies any fever, chills, nausea, vomiting, diarrhea, PND. The patient's daughter is the one giving majority of his history. She states this morning that he is refusing cardiac catheterization. However when I spoke to the patient this morning he states that he would be willing to have the cardiac catheterization but he does not want to go to and he does not want to have open heart surgery. Exam Vital signs and Labs for Last 24 Hours: Temp Pulse Resp BP Pulse Ox 98.6 F 80 17 93/62 L 100 01/15/20 07:54 01/15/20 08:00 01/15/20 07:54 01/15/20 07:54 01/15/20 08:15 Laboratory Results - last 24 hr 01/14/20 12:12: WBC 8.0, RBC 3.12 L, Hgb 9.6 L, Hct 30.6 L, MCV 98.2 H, MCH 30.8, MCHC 31.4 L, RDW 18.3 H, Plt Count 255, MPV 9.6, Neut % (Auto) 83.1 H, Lymph % (Auto) 9.4 L, [place] % (Auto) 4.1, Eos % (Auto) 3.2, Baso % (Auto) 0.2, Neut # (Auto) 6.6, Lymph # (Auto) 0.7, [place] # (Auto) 0.3, Eos # (Auto) 0.3, Baso # (Auto) 0.0 01/14/20 12:12: Sodium 138, Potassium 4.1, Chloride 101, Carbon Dioxide 24, Anion Gap 17.1 H, BUN 44 H, Creatinine 1.70 H, Estimated Creat Clear 29, Estimated GFR 39 L, Est GFR ( Amer) 47 L, Glucose 177 H, Calcium 8.6, Troponin I 1.37 H 01/14/20 12:12: NT-Pro-B Natriuret Pep 50566 H 01/14/20 12:12: SARS-CoV-2 IgG Ab (Rapid) Negative, SARS-CoV-2 IgM Ab (Rapid) Negative 01/14/20 12:12: Total Bilirubin 0.7, Direct Bilirubin 0.4, Conjugated Bilirubin 0.0, Indirect Bilirubin 0.3, Unconjugated Bilirubin 0.3, AST 43, ALT 30, Alkaline Phosphatase 125, Total Protein 6.8, Albumin 3.8 01/14/20 12:12: Lactate 2.8 H 01/14/20 12:12: TSH < 0.02 L 01/14/20 13:02: Chlamy pneumoniae PCR Not detected, Adenovirus (PCR) Not detected, B. pertussis DNA (PCR) Not detected, Coronavirus OC43 (PCR) Not detected, Coronavirus HKU1 (PCR) Not detected, Coronavirus 229E (PCR) Not detected, SARS-CoV-2 (PCR) Not detected, Coronavirus NL63 (PCR) Not detected, Human Metapneumovir PCR Not detected, Influenza A (H1) PCR Not detected, Influ A (H1N1/09) PCR Not detected, Influenza A (H3) PCR Not detected, Influenza Type A (PCR) Not detected, Influenza Type B (PCR) Not detected, M. pneumoniae (PCR) Not detected, Parainfluenza 1 (PCR) Not detected, Parainfluenza 2 (PCR) Not detected, Parainfluenza 3 (PCR) Not detected, Parainfluenza 4 (PCR) Not detected, RSV (PCR) Not detected, Entero/Rhino (PCR) Not detected 01/14/20 15:10: Troponin I 1.47 H 01/14/20 17:45: Troponin I 1.41 H 01/14/20 17:45: Lactate 3.1 H 01/14/20 20:09: Lactate 2.9 H 01/15/20 06:45: Sodium 136, Potassium 3.8, Chloride 101, Carbon Dioxide 28, Anion Gap 10.8, BUN 46 H, Creatinine 1.60 H, Estimated Creat Clear 30, Estimated GFR 42 L, Est GFR ( Amer) 50 L, Glucose 153 H, Calcium 8.3 L I & O for Last 24 hours: Intake & Output 01/12/20 01/13/20 01/14/20 01/15/20 23:59 23:59 23:59 23:59 Intake Total 360 / 360 120 / 120 Output Total 2099 / 2099 710 / 710 Balance -1740 / -1740 -590 / -590 Weight 135 lb 4 oz 132 lb 4.438 oz Narrative: Telemetry strip is sinus rhythm. Echo shows: Conclusion 1. Enlarged left atrium, dilated left ventricle, severe reduced left ventricular systolic function, visually estimated ejection fraction 20 to 25% with multiple segmental wall motion abnormality as described above, diastolic parameters are inconclusive. Possibility of apical mural thrombus can
--- NOTE | 2020-01-15 12:05 | PC.NURSE ---
PT IS REQUESTING A CIGARETTE. I EXPLAINED THE HOSPITAL POLICY AND OFFERED TO CALL AND SEE IF I COULD GET HIM A NICOTINE PATCH. PT AGREES. CALLED DR PARKINSON AND HE SAID PT COULD HAVE 21MG PATCH Q24 HOURS. APPLIED TO L ARM.
--- NOTE | 2020-01-15 12:51 | CA_ITS ---
APPROVED REPORT EXAM: Comprehensive 2D, Doppler, and color-flow Echocardiogram Cotton Expert: Maria Del Carmen Sosa RT(R) Ht: 5 ft 4 in Wt: 135lbs BSA: 1.66 BP: 110/78 mmHg Indications: repeat views with definity to r/o apical thrombus. echo done 01/14/20 Conclusion 1. Definity contrast study was performed to evaluate left ventricular systolic function, and exclude presence of left ventricular apical mural thrombus. 2. Visually estimated ejection fraction is 25 to 30% with marked hypokinesis involving mid to distal septum, anterior anterior apical apical and anterolateral wall, there is no left ventricular thrombus seen. Inferior basal wall is also markedly hypokinetic. Electronically signed by : Shane Herrera, 01/16/2020 15:30:51
--- NOTE | 2020-01-15 13:30 | PC.NURSE ---
TUCK POINTER HELPER notified this nurse of manual BP of 82/60. Notified Dr. Martin. He ordered 500ml bolus over 2 hours.
--- NOTE | 2020-01-15 15:36 | PC.NURSE ---
A&O TO NAME AND BIRTHDAY ONLY. PT HAS TOLERATED 2L NC WELL THROUGHOUT SHIFT. RESPIRATIONS REGULAR AND UNLABORED. CRACKLES NOTED THROUGHOUT LUNGS. ACTIVE BOWEL SOUNDS HEARD IN ALL 4 QUADRANTS. SOFT AND NONTENDER ABDOMEN. NO COUGH NOTED. PT HAS BEEN ENCOURAGED TO PROVIDE STAFF WITH SPUTUM SAMPLE BUT HE STATES HE ISN'T COUGHING ANYTHING UP. SPECIMEN CUP AT BEDSIDE. PT VOIDS PER URINAL. CLEAR YELLOW URINE NOTED. NO BM THUS FAR. HAND ORTHOPEDIC MECHANIC EQUAL. +2 PULSES NOTED THROUGHOUT. SCATTERED BRUISING NOTED THROUGHOUT BODY. DAUGHTER HAS BEEN AT BEDSIDE MOST OF THE SHIFT. PT PULLED OUT IV ONCE THIS SHIFT AND A NEW ONE WAS INSERTED. PT UNSCREWED HIS IV ONCE AND WAS REMINDED TO KEEP IN SCREWED IN BECAUSE HE NEEDS FLUIDS. PT IS CURRENTLY RECEIVING A FLUID BOLUS AT THIS TIME AND TOLERATING WELL. PT HAS RECEIVED 2 ANTIBIOTICS THIS SHIFT. HE REPORTED NAUSEA ONCE AND RECEIVED ZOFRAN. ON REASSESSMENT, PT WAS RESTING W EYES CLOSED. PT IS CURRENTLY LYING IN BED W CALL LIGHT WITHIN REACH. BED IN LOWEST POSITION. BED ALARM ON TO PROMOTE SAFETY. VSS. WILL CONTINUE TO MONITOR.
--- NOTE | 2020-01-15 16:52 | HMH.HP ---
*Admission Date: 01/14/20 *Chief complaint: edema *History of present illness: 84-year-old gentleman who presented to the emergency department with shortness of breath and lower extremity edema. THe states he is still short of breath with exertion but this is under much better control. He states his edema has resolved. He denies any chest pain or pressure. He denies any fever, chills, nausea, vomiting, diarrhea, PND. The patient's daughter is the one giving majority of his history. She states this morning that he is refusing cardiac catheterization but wants to talk to daughter first. Pt admitted for CHF with ef 20-25%, cardiology consult [facility] History I have reviewed the patient's past medical history: Yes Medical History: Reports:: Congestive Heart Failure, Chronic Obstructive Pulmonary Disease (COPD), Hyperlipidemia, Hypertension, Myocardial Infarction Denies:: Cancer, Diabetes Mellitus Type 1, Diabetes Mellitus Type 2 *Have you ever received a pneumonia vaccine?: No *Have you received a flu vaccine this season?: Yes Other Medical History: Reports: Anemia, Cataracts, Thyroid Disease Other Surgeries: Yes: Appendectomy, Other. No: Cardiac Catheterization, Colonoscopy, EGD Amputation: No Fractures: No - *Social History Last grade of school completed: 4th or less Smoking Status: Current every day smoker Tobacco Type: cigarettes # Packs/Day (cigarettes): 1 Alcohol Intake: never Substance Use Type: denies use *Occupational Status:: disabled Housing: house *Travel in the last 8 weeks: None Family Hx:: Heart Attack Review of Systems - Review of Systems Review of systems:: pertinent systems reviewed and negative unless documented below - Constitutional Denies fatigue, Denies malaise - Eyes Denies change in vision - ENT Denies change in voice - *Cardiovascular Reports chest pain, Reports shortness of breath - *Respiratory Reports shortness of breath, Reports shortness of breath with activity - *Gastrointestinal Denies bloating - *Genitourinary Denies urinary frequency - *Musculoskeletal Denies decreased muscle mass - Integumentary/Breasts Denies rash - *Neurologic Reports unsteadiness, Denies dizziness - Psychiatric Denies anxiety - Endocrine Denies flushing - Hematologic/Lymphatic Denies enlarged lymph nodes - Allergic/Immunologic Denies itchy eyes Meds Home Medications Medication Instructions Recorded Confirmed Type Levothyroxine Sodium [Synthroid 125 mcg PO DAILY 10/04/19 01/14/20 History 125mcg (0.125mg) tablet] carvediloL [Carvedilol 6.25mg Tab] 6.25 mg PO BID 10/04/19 01/14/20 History atorvastatin 80 mg tablet 80 mg PO DAILY #90 tab 11/19/19 01/14/20 Rx albuterol sulfate 90 mcg/actuation 1 puff INHALATION Q4-6H PRN #6.7 g 01/08/20 01/14/20 Rx aerosol inhaler Aspirin [Low Dose Aspirin EC] 81 mg PO DAILY 01/14/20 01/14/20 History Clopidogrel Bisulfate [Plavix] 75 mg PO DAILY 01/14/20 01/14/20 History Furosemide [Furosemide 40MG tAB*] 40 mg PO DAILY 01/14/20 01/14/20 History Isosorbide Mononitrate [Imdur 30mg 30 mg PO DAILY 01/14/20 01/14/20 History ER tablet] Naproxen 500 mg PO BID 01/14/20 01/14/20 History allopurinoL [Allopurinol 300mg 300 mg PO DAILY 01/14/20 01/14/20 History tablet] fluticasone furoate 100 1 inh INHALATION DAILY #28 each 01/15/20 Rx mcg-vilanterol 25 mcg/dose inhalation powder Allergies Allergy/AdvReac Type Severity Reaction Status Date / Time No Known Allergies Allergy Verified 01/14/20 10:56 Exam Vital signs and Labs for Last 24 Hours: Temp Pulse Resp BP Pulse Ox 97.5 F L 77 16 84/48 L 97 01/15/20 15:59 01/15/20 15:59 01/15/20 15:59 01/15/20 15:59 01/15/20 15:59 Laboratory Results - last 24 hr 01/14/20 17:45: Troponin I 1.41 H 01/14/20 17:45: Lactate 3.1 H 01/14/20 20:09: Lactate 2.9 H 01/15/20 06:45: Sodium 136, Potassium 3.8, Chloride 101, Carbon Dioxide 28, Anion Gap 10.8, BUN 46 H, Creatin
--- NOTE | 2020-01-15 18:16 | PC.NURSE ---
RA sat=86%, returned pt to 2L NC
--- NOTE | 2020-01-15 19:13 | PC.NURSE ---
report given to navid
--- NOTE | 2020-01-15 21:46 | PC.NURSE ---
2007- PT. POA CALLED THIS RN CONCERNING RECENT MD ROUND REPORTED BY ANOTHER FAMILY MEMBER AT BEDSIDE. POA WANTED CLARIFICATION IF PT. WERE TO HAVE A HEART CATH IN THE MORNING. POA AND PT. DO NOT WANT A HEART CATH. 2012- NOTIFIED MD (IGGY) OF POA AND PT. WISHES OF NOT WANTING HEART CATH. 2017- FAMILY NOTIFIED THAT MD IS AWARE OF WISHES
[2020-01-16] VITALS (10 sets, daily range): BP systolic 93–126; BP diastolic 48–71; PULSE 75–100; RESP 16–19; TEMP 36.5–36.7; O2SAT 90–97; BMI 23.3
--- NOTE | 2020-01-16 04:19 | PC.NURSE ---
PT. RESTLESS T/O NIGHT, ABLE TO STATE NAME, MONTH AND DAY AND LOCATION; UNABLE TO STATE YEAR OR CURRENT YEAR. INTERMITTENT CONFUSION REGARDING ST MEMORY NOTED, PT. EASILY REORIENTED. INTERMITTENT NONPRODUCTIVE COUGH NOTED, LUNGS DIMINISHED T/O BILAT. PT. STATES HE FEELS GOOD AND EXPRESSES THAT HE WANTS TO GO HOME.
--- NOTE | 2020-01-16 04:19 | PC.NURSE ---
Patient's nurse notified.
[2020-01-16 07:16] LABS: Basophils % 0.3 % (0.1-2.0); Eosinophils # 1.8 K/mm3 (0.0-0.4); Hematocrit 33.5 % (42.0-52.0); Hemoglobin 10.1 g/dL (14.1-18.0); Lymphocytes # 1.3 K/mm3 (0.7-4.5); Lymphocytes % 8.9 % (10-50); Mean Corpuscular HGB Conc 30.2 g/dL (31.8-35.4); Mean Corpuscular Hemoglobin 30.8 pg (27.0-31.2); Mean Corpuscular Volume 102.1 fl (80-94); Mean Platelet Volume 9.4 fl (7.4-10.4); Monocytes # 1.1 K/mm3 (0.1-1.0); Monocytes % 7.4 % (1.7-9.3); Neutrophils # 9.9 K/mm3 (1.8-7.8); Neutrophils % 70.4 % (37.0-80.0); Platelet Count 273 K/mm3 (142-424); Red Blood Count 3.28 M/mm3 (4.60-6.20); Red Cell Distribution Width 18.6 % (11.5-17.5); White Blood Count 14.1 K/mm3 (4.8-10.8)
[2020-01-16 07:29] LABS: Chloride 98 mmol/L (98-107)
--- NOTE | 2020-01-16 07:29 | HMH.PNCARD ---
Subjective Date: 01/16/20 Time: 07:29 Principal diagnosis: systolic chf Interval history: 84-year-old white male lying in bed in no acute distress. Denies any chest pain, pressure or tightness. He relates his breathing has improved but he does not feel well this morning. Patient is hard of hearing and difficult to communicate with. His daughter is unavailable at this time. Exam Vital signs and Labs for Last 24 Hours: Temp Pulse Resp BP Pulse Ox 97.7 F 82 16 98/52 L 90 L 01/16/20 04:00 01/16/20 04:00 01/16/20 04:00 01/16/20 04:15 01/16/20 04:00 Laboratory Results - last 24 hr 01/15/20 06:45: Sodium 136, Potassium 3.8, Chloride 101, Carbon Dioxide 28, Anion Gap 10.8, BUN 46 H, Creatinine 1.60 H, Estimated Creat Clear 30, Estimated GFR 42 L, Est GFR ( Amer) 50 L, Glucose 153 H, Calcium 8.3 L 01/16/20 06:39: WBC 14.1 H D, RBC 3.28 L, Hgb 10.1 L, Hct 33.5 L, MCV 102.1 H, MCH 30.8, MCHC 30.2 L, RDW 18.6 H, Plt Count 273, MPV 9.4, Neut % (Auto) 70.4, Lymph % (Auto) 8.9 L, [place] % (Auto) 7.4, Eos % (Auto) 13.0 H, Baso % (Auto) 0.3, Neut # (Auto) 9.9 H, Lymph # (Auto) 1.3, [place] # (Auto) 1.1 H, Eos # (Auto) 1.8 H, Baso # (Auto) 0.0 I & O for Last 24 hours: Intake & Output 01/13/20 01/14/20 01/15/20 01/16/20 11:59 11:59 11:59 11:59 Intake Total 480 / 480 861 / 861 Output Total 2810 / 2810 400 / 400 Balance -2330 / -2330 461 / 461 Weight 135 lb 132 lb 4.438 oz 137 lb - Constitutional no acute distress - *Routine Respiratory Exam Present: decreased breath sounds, rhonchi - *Routine Cardiovascular Exam Present: RRR - *Routine Extremities Exam Absent: cyanosis, clubbing, edema - *Routine Neurological Exam Present: alert, oriented X3 Progress Note: A&P (1) Congestive heart failure Status: Acute (2) Elevated troponin Status: Acute (3) Acute urinary retention Status: Acute (4) Respiratory failure with hypoxia Status: Acute (5) History of hypertension Status: Acute (6) History of diabetes mellitus Status: Acute (7) Hyperlipidemia Status: Chronic (8) Hypothyroidism Status: Chronic Assessment and Plan for All Diagnoses:: 1. Acute Systolic Congestive heart failure, clinically seems to be improved with patient able to lie on his side nearly flat without significant shortness of breath. Continue diuretic therapy with combination of Lasix, spironolactone in addition to Entresto. 2. Cardiomyopathy with concern for apical mural thrombus. Limited echo with Definity contrast images obtained yesterday with no evidence of LV thrombus. Continue goal-directed medical therapy with Coreg, Entresto and diuretic therapy. Will decrease Coreg due to hypotension. 3. Elevated troponin, likely secondary to CHF but with concern for ischemic origin for his cardiomyopathy. Patient continues to decline the offer of left heart catheterization, daughter will honor her father's wishes. Therefore, continue medical therapy. 4. Chronic kidney disease, stage III, stable. 5. Hypothyroidism, on replacement therapy with low TSH this admission. Defer to PCP for management. 6. Hyperlipidemia, on statin therapy 7. Abnormal EKG, telemetry continues with no arrhythmias noted. 8. History of diabetes, remote history of treatment that was discontinued many years ago. Elevated glucose noted during this admission. Defer to PCP. 9. Pneumonia on chest x-ray with hypoxemia, continues to require oxygen therapy. Pt has elected to not proceed with cardiac cath at this time. Recommend continuing current meds: Aspirin 81 mg daily Atorvastatin 80 mg daily Carvedilol 3.125 mg twice daily Plavix 75 mg daily Furosemide 40 mg daily Isosorbide mononitrate 30 mg daily Entresto 24/26 mg twice daily Spironolactone 25 mg daily Patient could be discharged home when PCP feels ready. Hospice is being considered. Recommend BMP in 1 week to assess renal status on diuretic therapy
[2020-01-16 07:30] LABS: Sodium 135 mmol/L (136-145)
[2020-01-16 07:32] LABS: Blood Urea Nitrogen 55 mg/dl (9-20); Creatinine Clearance Estimated 28 mL/min (50-200); Estimated Glomerular Filt Rate 36 ml/min (>60); GFR (African American) 44 ML/MIN (>60)
[2020-01-16 07:33] LABS: Calcium 8.1 mg/dl (8.4-10.2); Carbon Dioxide 27 mmol/L (22.0-30.0); Chol/HDL Ratio 2.3 (1-3.5); Cholesterol 68 mg/dl (140-200); Glucose 148 mg/dl (74-100); HDL Cholesterol 29 mg/dl (40-60); Triglycerides 171 mg/dl (30-150); VLDL Cholesterol 34 mg/dL (0-40)
[2020-01-16 07:50] LABS: Direct LDL Cholesterol < 30.00 mg/dL (100-129)
--- NOTE | 2020-01-16 10:39 | PC.NURSE ---
PT'S DAUGHTER CALLED THIS MORNING AND STATED SHE REALLY DID WANT TO DO WHAT WAS BEST FOR HER FATHER BUT HER FATHER MADE IT PERFECTLY CLEAR TO HER YESTERDAY THAT HE DID NOT WANT TO HAVE THE HEART CATH SO SHE WAS GOING TO RESPECT HER FATHER'S WISHES. PT VOICED THIS MORNING THAT HE DID NOT WANT TO HAVE THE HEART CATH AND HE STATED HE WANTED HIS PANTS AND SHOES AND WAS READY TO GO HOME.
--- NOTE | 2020-01-16 10:50 | HMH.OTEV ---
OT Inpatient Evaluation Rehab OT IP Evaluation Start: 01/16/20 08:52 Freq: ONCE Status: Complete Protocol: Document 01/16/20 10:40 [facility] (Rec: 01/16/20 10:50 [facility] [id number]) Rehab OT IP Assessment Subjective History Pt oriented to person and birthday on arrival. Pt agreeable to engage in therapy evaluation. Pt was admitted on 01/14/20 via ED due to SOB and LE edema. Pt has a past medical history of CHF, COPD, HTN, Hyperlipidemia, and MN. Pt reports he lives alone, but his daughter and his brother check on him often. Pt claims he is independent with dressing and showering, but dependent upon daughter/ brother for cooking, cleaning, and other IADL's. Pt reports he does use a cane during ambulation for increased safety. Subjective I am cold. Objective Patient Orientation Person,Birthday Upper Extremity Gross ROM WFL Bed Mobility bed mobility-scooting,bed mobility - supine/sit,bed mobility - rolling Assist Level Supervision/Stand by Transfer Training Sit/Stand Transfer Assist Level Contact Guard/Hand Hold Rehab OT IP prob,goals,plan Problems Date of Evaluation: 01/16/20 OT IP Problems Bed Mobility,Transfers,Gait, Balance,Self care,Safety Rehab Potential Rehab Potential Good Equipment Needs Assistive Devices Straight Cane Plan OT intervention Plan Bed Mobility,Transfers,Gait, Balance,Self care,Safety, Therapeutic Exercise OT Plan Frequency Daily Duration LOS Discharge Goals Bed Mobility Ability Standby Assistance Sit to Stand Chair Transfer Ability Supervision/Stand by Chair Transfer Ability Supervision/Stand by Chair Transfer Technique Sit to/from Ambulatory Chair Transfer Assistive Devices Straight Cane Lower Body Dressing Ability Assistance X1 Upper Body Dressing Ability Standby Assistance Bathing Ability Assistance x1 Performing Toilet Hygiene Ability Standby Assistance Overall Commode/Toilet Transfer Ability Standby Assistance Commode/Toilet
--- NOTE | 2020-01-16 11:23 | HMH.PTEV ---
Physical Therapy Evaluation Rehab PT IP Evaluation Start: 01/16/20 08:52 Freq: ONCE Status: Active Protocol: Document 01/16/20 09:50 [facility] (Rec: 01/16/20 11:23 [facility] [id number]) Subjective/History History History 84 yowm adm to [facility] with CHF exac and general weakness. He reports he lives alone and is independent with all mobility using a sctraight cane. He reports he plans to stay with family upon D/C from the hospital. Subjective Subjective Pt reports he feels tired this am and needs some pills, but did not express what type of pills he needs. Rehab PT IP Eval Objective Appearance Patient Behavior Appropriate Patient Orientation Person,Place Difficulty following instructions none Speech Pattern Clear Ambulation Patient Able to Ambulate Yes Ambulation Observation IP General Gait Pattern Observation Shuffling Step Ambulation Distance (feet) 30 Ambulation Assistive Device Straight Cane Ambulation Ability Contact Guard/Hand Hold Balance Ability to Arise Able, uses arms to help Sitting Balance Steady, safe Standing Balance Steady, wide stance Dynamic Sitting Balance Ability Good Dynamic Standing Balance Ability Fair Transfers Bed Transfer Ability Contact Guard/Hand Hold Chair Transfer Ability Contact Guard/Hand Hold Sit to Stand Bed Transfer Ability Contact Guard/Hand Hold Sit to Stand Chair Transfer Ability Contact Guard/Hand Hold ROM All Extremities PT ROM Status WFL MMT All Extremities PT MMT WFL Rehab PT IP prob,goals,plan Problems Date of Evaluation: 01/16/20 PT IP Problems Bed Mobility,Transfers,Gait Rehab Potential Rehab Potential Good Plan PT Intervention Plan Bed Mobility,Transfers,Gait, Therapeutic Exercise PT Plan Frequency BID Duration LOS Discharge Goals Bed Transfer Ability Supervision/Stand by Sit to Stand Chair Transfer Ability Supervision/Stand by Ambulation Assistive Device Straight Cane Ambulation Distance (feet) 40 Discharge Plan PT Discharge Plan Pt is appropriate to return home with assist once medically stable. G -code Required No Eval Complexity Eval Charge Codes 11963 - Moderate Complexity
--- NOTE | 2020-01-16 12:43 | HMH.ACPN2 ---
Internal Medicine - PN: Subj *Date: 01/16/20 *Time: 08:10 Interval history: pt laying in bed states he still does not want a heart cath Exam Vital signs and Labs for Last 24 Hours: Temp Pulse Resp BP Pulse Ox 98.1 F 100 H 19 98/58 L 93 L 01/16/20 11:13 01/16/20 12:00 01/16/20 11:13 01/16/20 11:13 01/16/20 11:13 Laboratory Results - last 24 hr 01/16/20 06:39: WBC 14.1 H D, RBC 3.28 L, Hgb 10.1 L, Hct 33.5 L, MCV 102.1 H, MCH 30.8, MCHC 30.2 L, RDW 18.6 H, Plt Count 273, MPV 9.4, Neut % (Auto) 70.4, Lymph % (Auto) 8.9 L, [place] % (Auto) 7.4, Eos % (Auto) 13.0 H, Baso % (Auto) 0.3, Neut # (Auto) 9.9 H, Lymph # (Auto) 1.3, [place] # (Auto) 1.1 H, Eos # (Auto) 1.8 H, Baso # (Auto) 0.0 01/16/20 06:39: Sodium 135 L, Potassium 4.0, Chloride 98, Carbon Dioxide 27, Anion Gap 14.0, BUN 55 H, Creatinine 1.80 H, Estimated Creat Clear 28, Estimated GFR 36 L, Est GFR ( Amer) 44 L, Glucose 148 H, Calcium 8.1 L, Triglycerides 171 H, Cholesterol 68 L, LDL Cholesterol Direct < 30.00 L, VLDL Cholesterol 34, HDL Cholesterol 29 L, Cholesterol/HDL Ratio 2.3 I & O for Last 24 hours: Intake & Output 01/14/20 01/15/20 01/16/20 01/17/20 11:59 11:59 11:59 11:59 Intake Total 480 / 480 861 / 861 120 / 120 Output Total 2810 / 2810 400 / 400 Balance -2330 / -2330 461 / 461 120 / 120 Weight 135 lb 132 lb 4.438 oz 137 lb Microbiology Reports for the Last 24 Hours: Microbiology 01/14/20 12:12 Blood Blood Culture - Preliminary NO GROWTH AFTER 48 HOURS 01/14/20 12:12 Blood Blood Culture - Preliminary NO GROWTH AFTER 48 HOURS - Constitutional no acute distress - *Routine HEENT Exam Head: Present: normocephalic Eye: Present: PERRL ENT: Present: mucous membranes moist - *Routine Neck Exam Present: supple. Absent: lymphadenopathy - *Routine Respiratory Exam Present: CTA bilaterally - *Routine Cardiovascular Exam Present: RRR, murmur - *Routine Abdominal Exam Present: soft, normoactive bowel sounds. Absent: tenderness - *Routine Extremities Exam Present: normal capillary refill. Absent: cyanosis, clubbing, edema - *Routine Skin Exam Present: warm. Absent: rash - *Routine Neurological Exam Present: alert, oriented X3 - Routine Psychiatric Exam Present: normal affect Assessment and Plan (1) Congestive heart failure Status: Acute Qualifiers: Heart failure type: unspecified Heart failure chronicity: acute Qualified Code(s): I50.9 - Heart failure, unspecified Category: Medical Code(s): I50.9 - Heart failure, unspecified (2) Elevated troponin Status: Acute Category: Medical Code(s): R77.8 - Other specified abnormalities of plasma proteins (3) Acute urinary retention Status: Acute Category: Medical Code(s): R33.8 - Other retention of urine (4) Respiratory failure with hypoxia Status: Acute Qualifiers: Chronicity: acute Qualified Code(s): J96.01 - Acute respiratory failure with hypoxia Category: Medical Code(s): J96.91 - Respiratory failure, unspecified with hypoxia (5) History of hypertension Status: Acute Category: Medical Code(s): Z86.79 - Personal history of other diseases of the circulatory system (6) History of diabetes mellitus Status: Acute Category: Medical Code(s): Z86.39 - Personal history of other endocrine, nutritional and metabolic disease (7) Hyperlipidemia Status: Chronic Qualifiers: Hyperlipidemia type: other hyperlipidemia Qualified Code(s): E78.49 - Other hyperlipidemia; E78.4 - Other hyperlipidemia Category: Medical Code(s): E78.5 - Hyperlipidemia, unspecified (8) Hypothyroidism Status: Chronic Qualifiers: Hypothyroidism type: acquired Qualified Code(s): E03.9 - Hypothyroidism, unspecified Category: Medical Code(s): E03.9 - Hypothyroidism, unspecified - Assessment and plan all Dx Assessment and Plan for all prob
--- NOTE | 2020-01-16 14:36 | PC.NURSE ---
PT IS SITTING UP IN THE CHAIR. NO COMPLAINTS OF DISCOMFORT. PT STATES HE REALLY WANTS TO GO HOME. PT STILL DOES NOT WANT TO HAVE THE HEART CATH. LUNG SOUNDS HAVE SCATTERED RHONCHI. ABDOMEN SOFT/NON TENDER WITH ACTIVE BOWEL SOUNDS. PT EATS VERY LITTLE BUT HAS BEEN DRINKING GOOD. BP HAS BEEN 90'S SYSTOLIC T/O THE SHIFT. WILL CONTINUE TO MONITOR.
--- NOTE | 2020-01-16 17:56 | PC.NURSE ---
PT IS SITTING UP ON THE SOB AT THIS TIME. NO COMPLAINTS OF DISCOMFORT. PT HAS STATED SEVERAL TIMES T/O THE SHIFT THAT HE WANTS TO GO HOME. PT HAS AMBULATED IN THE ROOM WITH 1 ASSIST AND ALSO PARTICIPATED WORKING WITH PHYSICAL THERAPY. PT'S FAMILY CALLED TODAY AND STATED PT HAS BEEN LIVING ON HIS OWN BUT WHEN PT IS DISCHARGED THE PLAN IS FOR HIM TO MOVE IN WITH THEM. PT HAS BEEN SOMEWHAT DIFFICULT TO COMMUNICATE WITH B/C HE IS VERY [place] AND [place]. BP HAS BEEN LOW T/O THE SHIFT. CARVEDILOL WAS NOT GIVEN THIS MORNING (PCP AWARE). WILL CONTINUE TO MONITOR
[2020-01-17] VITALS: BP 119/62; PULSE 52; PULSE 90; RESP 19; TEMP 36.7; O2SAT 94
--- NOTE | 2020-01-17 03:19 | PC.NURSE ---
Pt remained restless, c/o bilateral leg pain until 99. Pt has slept since 99. Tylenol was administered for leg pain, warm blanket applied to legs as well. Nicotine patch applied in an effort to help alleviate restlessness. Pt cont to be oriented to person and place only. Cannot tell RN his , present year, or president. Lung sounds have scattered fine crackles and bases are diminished.
[2020-01-17 04:00] VITALS: BP 120/68; PULSE 88; PULSE 90; RESP 18; TEMP 36.8; O2SAT 90
[2020-01-17 05:00] VITALS: BMI 23.3
--- NOTE | 2020-01-17 05:08 | PC.NURSE ---
Pt had small amt of emesis, watery with black chunks. Zofran administered. Clumps of hair noted on bedside table. Pt states he doesn't know how hair got there. Pt reoriented to place and situation.
[2020-01-17 06:58] LABS: Basophils % 0.3 % (0.1-2.0); Eosinophils # 1.2 K/mm3 (0.0-0.4); Eosinophils % 9.5 % (0.1-12.0); Hematocrit 30.2 % (42.0-52.0); Hemoglobin 9.2 g/dL (14.1-18.0); Lymphocytes # 1.1 K/mm3 (0.7-4.5); Lymphocytes % 9.4 % (10-50); Mean Corpuscular HGB Conc 30.5 g/dL (31.8-35.4); Mean Corpuscular Hemoglobin 31.3 pg (27.0-31.2); Mean Corpuscular Volume 102.6 fl (80-94); Neutrophils # 8.8 K/mm3 (1.8-7.8); Neutrophils % 72.8 % (37.0-80.0); Platelet Count 237 K/mm3 (142-424); Red Blood Count 2.94 M/mm3 (4.60-6.20); Red Cell Distribution Width 18.7 % (11.5-17.5); White Blood Count 12.1 K/mm3 (4.8-10.8)
[2020-01-17 07:04] LABS: Chloride 101 mmol/L (98-107); Potassium 3.6 mmoL/L (3.5-5.1); Sodium 135 mmol/L (136-145)
[2020-01-17 07:07] LABS: Anion Gap 11.6 mEq/L (5-15); Blood Urea Nitrogen 54 mg/dl (9-20); Calcium 7.9 mg/dl (8.4-10.2); Carbon Dioxide 26 mmol/L (22.0-30.0); Creatinine Clearance Estimated 26 mL/min (50-200); Estimated Glomerular Filt Rate 34 ml/min (>60); GFR (African American) 41 ML/MIN (>60); Glucose 146 mg/dl (74-100)
--- NOTE | 2020-01-17 07:26 | HMH.PNCARD ---
Subjective Date: 01/17/20 Time: 07:26 Principal diagnosis: systolic chf Interval history: 84 yo WM in bed in NAD. States he is feeling better than on admission. Denies any chest pain, pressure or tightness. No interest in smoking cessation. Telemetry sinus without arrhythmias. Exam Vital signs and Labs for Last 24 Hours: Temp Pulse Resp BP Pulse Ox 98.2 F 88 18 120/68 90 L 01/17/20 04:00 01/17/20 04:00 01/17/20 04:00 01/17/20 04:00 01/17/20 04:00 Laboratory Results - last 24 hr 01/16/20 06:39: Sodium 135 L, Potassium 4.0, Chloride 98, Carbon Dioxide 27, Anion Gap 14.0, BUN 55 H, Creatinine 1.80 H, Estimated Creat Clear 28, Estimated GFR 36 L, Est GFR ( Amer) 44 L, Glucose 148 H, Calcium 8.1 L, Triglycerides 171 H, Cholesterol 68 L, LDL Cholesterol Direct < 30.00 L, VLDL Cholesterol 34, HDL Cholesterol 29 L, Cholesterol/HDL Ratio 2.3 01/17/20 06:48: WBC 12.1 H, RBC 2.94 L, Hgb 9.2 L, Hct 30.2 L, MCV 102.6 H, MCH 31.3 H, MCHC 30.5 L, RDW 18.7 H, Plt Count 237, MPV 10.0, Neut % (Auto) 72.8, Lymph % (Auto) 9.4 L, [place] % (Auto) 8.0, Eos % (Auto) 9.5, Baso % (Auto) 0.3, Neut # (Auto) 8.8 H, Lymph # (Auto) 1.1, [place] # (Auto) 1.0, Eos # (Auto) 1.2 H, Baso # (Auto) 0.0 01/17/20 06:48: Sodium 135 L, Potassium 3.6, Chloride 101, Carbon Dioxide 26, Anion Gap 11.6, BUN 54 H, Creatinine 1.90 H, Estimated Creat Clear 26, Estimated GFR 34 L, Est GFR ( Amer) 41 L, Glucose 146 H, Calcium 7.9 L I & O for Last 24 hours: Intake & Output 01/14/20 01/15/20 01/16/20 01/17/20 11:59 11:59 11:59 11:59 Intake Total 480 / 480 861 / 861 480 / 480 Output Total 2810 / 2810 400 / 400 860 / 860 Balance -2330 / -2330 461 / 461 -380 / -380 Weight 135 lb 132 lb 4.438 oz 137 lb 136 lb 14.513 oz Microbiology Reports for the Last 24 Hours: Microbiology 01/14/20 12:12 Blood Blood Culture - Preliminary NO GROWTH AFTER 48 HOURS 01/14/20 12:12 Blood Blood Culture - Preliminary NO GROWTH AFTER 48 HOURS - Constitutional no acute distress - *Routine Respiratory Exam Present: rhonchi Comments: improving air movement. - *Routine Cardiovascular Exam Present: RRR - *Routine Extremities Exam Absent: cyanosis, clubbing, edema - *Routine Neurological Exam Present: alert, oriented X3 Progress Note: A&P (1) Congestive heart failure Status: Acute (2) Elevated troponin Status: Acute (3) Acute urinary retention Status: Acute (4) Respiratory failure with hypoxia Status: Acute (5) History of hypertension Status: Acute (6) History of diabetes mellitus Status: Acute (7) Hyperlipidemia Status: Chronic (8) Hypothyroidism Status: Chronic Assessment and Plan for All Diagnoses:: Echo follow up yesterday confirmed LVEF of 25% with no LV thrombus. Moderate /AI. No changes in meds as listed yesterday. Plan is for discharge home with family today. Follow up in our office in 1-2 wks.
[2020-01-17 07:45] LABS: NT Pro Brain Natriuretic Pep. 7420 pg/mL (0-450)
[2020-01-17 08:00] VITALS: BP 108/60; PULSE 90; PULSE 96; RESP 18; TEMP 36.6; O2SAT 90; O2SAT 94
--- NOTE | 2020-01-17 09:23 | HMH.DCSUM ---
General - General Admission date:: 01/14/20 Discharge date: 01/17/20 HPI HPI: 84-year-old gentleman who presented to the emergency department with shortness of breath and lower extremity edema. THe states he is still short of breath with exertion but this is under much better control. He states his edema has resolved. He denies any chest pain or pressure. He denies any fever, chills, nausea, vomiting, diarrhea, PND. The patient's daughter is the one giving majority of his history. She states this morning that he is refusing cardiac catheterization but wants to talk to daughter first. Pt admitted for CHF with ef 20-25%, cardiology consult Hospital Course Hospital Course: Laboratory Tests 01/14/20 01/14/20 01/14/20 12:12 12:12 12:12 WBC 8.0 RBC 3.12 L Hgb 9.6 L Hct 30.6 L MCV 98.2 H MCH 30.8 MCHC 31.4 L RDW 18.3 H Plt Count 255 MPV 9.6 Neut % (Auto) 83.1 H Lymph % (Auto) 9.4 L [place] % (Auto) 4.1 Eos % (Auto) 3.2 Baso % (Auto) 0.2 Neut # (Auto) 6.6 Lymph # (Auto) 0.7 [place] # (Auto) 0.3 Eos # (Auto) 0.3 Baso # (Auto) 0.0 Sodium 138 Potassium 4.1 Chloride 101 Carbon Dioxide 24 Anion Gap 17.1 H BUN 44 H Creatinine 1.70 H Estimated Creat Clear 29 Estimated GFR 39 L Est GFR ( Amer) 47 L Glucose 177 H Lactate Calcium 8.6 Total Bilirubin Direct Bilirubin Conjugated Bilirubin Indirect Bilirubin Unconjugated Bilirubin AST ALT Alkaline Phosphatase Troponin I 1.37 H NT-Pro-B Natriuret Pep 03219 H Total Protein Albumin Triglycerides Cholesterol LDL Cholesterol Direct VLDL Cholesterol HDL Cholesterol Cholesterol/HDL Ratio TSH Chlamy pneumoniae PCR Adenovirus (PCR) B. pertussis DNA (PCR) Coronavirus OC43 (PCR) Coronavirus HKU1 (PCR) Coronavirus 229E (PCR) SARS-CoV-2 (PCR) Coronavirus NL63 (PCR) Human Metapneumovir PCR Influenza A (H1) PCR Influ A (H1N1/09) PCR Influenza A (H3) PCR Influenza Type A (PCR) Influenza Type B (PCR) M. pneumoniae (PCR) Parainfluenza 1 (PCR) Parainfluenza 2 (PCR) Parainfluenza 3 (PCR) Parainfluenza 4 (PCR) RSV (PCR) Entero/Rhino (PCR) SARS-CoV-2 IgG Ab (Rapid) SARS-CoV-2 IgM Ab (Rapid) 01/14/20 01/14/20 01/14/20 12:12 12:12 12:12 WBC RBC Hgb Hct MCV MCH MCHC RDW Plt Count MPV Neut % (Auto) Lymph % (Auto) [place] % (Auto) Eos % (Auto) Baso % (Auto) Neut # (Auto) Lymph # (Auto) [place] # (Auto) Eos # (Auto) Baso # (Auto) Sodium Potassium Chloride Carbon Dioxide Anion Gap BUN Creatinine Estimated Creat Clear Estimated GFR Est GFR ( Amer) Glucose Lactate 2.8 H Calcium Total Bilirubin 0.7 Direct Bilirubin 0.4 Conjugated Bilirubin 0.0 Indirect Bilirubin 0.3 Unconjugated Bilirubin 0.3 AST 43 ALT 30 Alkaline Phosphatase 125 Troponin I NT-Pro-B Natriuret Pep Total Protein 6.8 Albumin 3.8 Triglycerides Cholesterol LDL Cholesterol Direct VLDL Cholesterol HDL Cholesterol Cholesterol/HDL Ratio TSH Chlamy pneumoniae PCR Adenovirus (PCR) B. pertussis DNA (PCR) Coronavirus OC43 (PCR) Coronavirus HKU1 (PCR) Coronavirus 229E (PCR) SARS-CoV-2 (PCR) Coronavirus NL63 (PCR) Human Metapneumovir PCR Influenza A (H1) PCR Influ A (H1N1/09) PCR Influenza A (H3) PCR Influenza Type A (PCR) Influenza Type B (PCR) M. pneumoniae (PCR) Parainfluenza 1 (PCR) Parainfluenza 2 (PCR) Parainfluenza 3 (PCR) Parainfluenza 4 (PCR) RSV (PCR) Entero/Rhino (PCR) SARS-CoV-2 IgG Ab (Rapid) Negative SARS-CoV-2 IgM Ab (Rapid) Negative 01/14/20 01/14/20 01/14/20 12:12 13:02 15:10 WBC RBC Hgb Hc
--- NOTE | 2020-01-17 09:48 | SW/DCPLANNER ---
Addendum entered by Flakita Miller 01/17/20 12:34: Lorie from [facility] has called and stated information/order has been reviewed and will be delivered to patients room. Addendum entered by Flakita Miller 01/17/20 12:08: Patient RA is at 88% per patients nurse (Alyson Mojica). Patient information and order has been faxed to [facility] for home O2 and portable tank. Addendum entered by Flakita Miller 01/17/20 09:51: Risa with Hospice has stated she will contact patients daughter today. Original Note: Patient information has been faxed to [facility] for them to review and evaluate patient at home. I will speak with Risa and make her aware to contact patients daughter prior to evaluating patient at home. Patient will discharge home today.
--- NOTE | 2020-01-17 11:55 | PC.NURSE ---
PT HAS BEEN COMPLAINING OF NAUSEA AND A HEADACHE T/O THE SHIFT. PT WAS ENCOURAGED TO EAT IN SMALL PORTIONS BEFORE TAKING HIS MEDICATIONS AND HE STATES I'M JUST NOT HUNGRY PT WAS OFFERED AN ENSURE WHICH HE DID NOT DRINK THIS MORNING BUT WOULD DRINK ONE WHEN DAUGHTER SHOWED UP. NATHALIA WAS CALLED IN AT [facility]. PT HAS NOT WANTED TO LEAVE HIS OXYGEN ON. ROOM AIR SATURATION WAS 88%. ANGELIQUE DEGROOT NOTIFIED AND SHE STATED IT WAS OKAY FOR PT TO HAVE OXYGEN AT HOME. CARE MANAGEMENT NOTIFIED.
[2020-01-17 12:00] VITALS: O2SAT 88
== END 2020-01-17 13:05 | disposition home or self-care (01) | DRG 291 ==
LOC: ER 11:55 → 2ND 14:06
PROVIDERS: Nurse Practitioner Family; Physician Assistant; Admitting Provider Emergency Medicine; Emergency Provider Emergency Medicine; PCP Emergency Medicine; Visit Provider Emergency Medicine
DX: I13.0 Hypertensive heart and chronic kidney disease with heart failure and stage 1 through stage 4 chronic kidney disease, or unspecified chronic kidney disease (principal); I50.21 Acute systolic (congestive) heart failure; J96.01 Acute respiratory failure with hypoxia; N18.30 Chronic kidney disease, stage 3 unspecified; E78.5 Hyperlipidemia, unspecified; E03.9 Hypothyroidism, unspecified; J44.9 Chronic obstructive pulmonary disease, unspecified; E11.22 Type 2 diabetes mellitus with diabetic chronic kidney disease; I42.9 Cardiomyopathy, unspecified; Z72.0 Tobacco use; Z79.02 Long term (current) use of antithrombotics/antiplatelets; Z79.899 Other long term (current) drug therapy
CPT/HCPCS: 36415; 71045; 80048; 80061; 80076; 83605; 83880; 84443; 84484; 85025; 86328; 87040; 87581; 87633; 87798; 93005; 93306; 93308; 94761; 96365; 96375; 97110; 97162; 97165; 97530; 99285; J0456; J1956; J2405